=== PATIENT | female | born 1950 | race Caucasian/White ===

== ENCOUNTER 2017-07-15 07:14 | Day surgery (SDC) | payer BC, OTHER ==
[2017-07-15 07:41] VITALS: BMI 35.7
[2017-07-15] MEDS ORDERED: ROPIVACAINE HCL 0.5% 30ML VIAL ONE (08:31)
[2017-07-15] MEDS ORDERED: DEXAMETHASONE SOD PHOSPHATE/PF 10 MG/ML SDV ONE (08:31)
[2017-07-15] MEDS ORDERED: MIDAZOLAM HCL 2 MG/2 ML SINGLE DOSE VIAL ONE ×2 (08:32)
[2017-07-15] MEDS ORDERED: DEXAMETHASONE SOD PHOSPHATE 4 MG/1 ML VIAL ONE ×2 (10:12→11:23)
[2017-07-15] MEDS ORDERED: PROPOFOL 20 ML ONE (10:15)
[2017-07-15] MEDS ORDERED: ROCURONIUM BROMIDE 50 MG/5 ML VIAL ONE (10:15)
[2017-07-15] MEDS ORDERED: LIDOCAINE HCL/PF 2% SDV 5ML VIAL ONE (10:15)
[2017-07-15] MEDS ORDERED: ceFAZolin SODIUM 1 GM VIAL ONE (10:19)
[2017-07-15] MEDS ORDERED: ceFAZolin SODIUM 1 GM VIAL IVPB ONE (10:28)
[2017-07-15] MEDS ORDERED: ePHEDrine SULFATE 50 MG/1 ML AMPULE ONE (10:52)
[2017-07-15] MEDS ORDERED: GLYCOPYRROLATE 0.2 MG/1 ML VIAL ONE (11:23)
[2017-07-15] MEDS ORDERED: NEOSTIGMINE METHYLSULFATE 0.5 MG/ML - 10 ML MDV ONE (11:23)
--- NOTE | 2017-07-15 11:34 | HP ---
[facility] - Chief Complaint Chief Complaint: left shoulder pain - Past Medical History Allergies/Adverse Reactions: Allergies Allergy/AdvReac Type Severity Reaction Status Date / Time levofloxacin [From Levaquin] Allergy Verified 07/25/14 11:36 epinephrine AdvReac Verified 07/25/14 11:36 DOGS Allergy Severe Uncoded 07/25/14 11:36 preser in epi-sodium Allergy Uncoded 07/15/17 08:27 metobisulfite Pulmonary: Yes: Asthma Gastrointestinal: Yes: GERD Renal/: Yes: Renal Calculi Heme/Onc: Yes: Other (h/o DVT on full dose daily ASA) - Current Medications Current Medications: Home Medications Medication Instructions Recorded Albuterol Sulfate Inhaler - 1 puff IH PRN 07/15/17 [Ventolin HFA Inhaler -] Aspirin 81 mg PO DAILY 07/15/17 Bupropion HCl [Bupropion Xl] 300 mg PO DAILY 07/15/17 Fluticasone Propionate [Flovent 50 mcg IH DAILY 07/15/17 Diskus] Mometasone/Formoterol [Dulera 200 2 inh IH PRN 07/15/17 Mcg/5 Mcg Inhaler] Omeprazole 40 mg PO DAILY 07/15/17 Oxycodone HCl/Acetaminophen 1 - 2 tab PO Q6H #30 tab MDD 6 07/15/17 [Percocet 5-325 mg Tablet] [facility] Physical Exam - Physical Examination Vital Signs: Vital Signs Period Temp Pulse Resp BP Sys/Mcgregor Pulse Ox Last 24 Hr 98.4 F-98.4 F 63-63 20-20 108-108/56-56 96 General Appearance: Well Nourished, Well Developed, Alert & Oriented x3 ENT: Clear Lung: Normal air movement Heart: Regular rate & rhythm Extremities: Other (left shoulder- + ttp, decr rom, + empty can, + neer, + sofia, nvi MRI + rct) Neurological: Intact, Alert, Oriented [facility] Impression/Plan - Impression/Plan Impression: left shoulder rct Operative Procedure: left shoulder arthroscopy RCR, SAD Date to be Performed: 07/15/17
--- NOTE | 2017-07-15 11:36 | OP ---
Operative Note - Note: Operative Date: 07/15/17 ([facility]) Pre-Operative Diagnosis: left shoulder rct Operation: left shoulder arthroscopy with RCR, SAD Implants: arthrex speedbridge Post-Operative Diagnosis: Same as Pre-op Surgeon: Demetrio Barkley Landscaping And Groundskeeping Laborer: Issa Malik Anesthesiologist/DAY PORTER: Sabas Rubin Anesthesia: General, Local Specimens Removed: shavings Estimated Blood Loss (mls): 10 Operative Report Dictated: Yes
[2017-07-15] MEDS ORDERED: ONDANSETRON 4 MG/2 ML VIAL IVPUSH PRN (11:42)
[2017-07-15] MEDS ORDERED: oxyCODONE HCL 5 MG TABLET PO PRN (11:42)
[2017-07-15] MEDS ORDERED: LACTATED RINGERS SOLUTION 1,000 ML IV SCH (11:45)
--- NOTE | 2017-07-15 13:20 | SPEC ---
DATE OF OPERATION: 07/15/2017 PREOPERATIVE DIAGNOSIS: Left rotator cuff tear. POSTOPERATIVE DIAGNOSIS: Left rotator cuff tear. PROCEDURE: Left shoulder arthroscopy, subacromial decompression, and SpeedBridge rotator cuff repair. SURGICAL ATTENDING: Demetrio Barkley MD TOBACCO BUYER: FANY Watkins ANESTHESIA: Regional and general. CLOSURE: An Arthrex SpeedBridge for rotator cuff and 3-0 nylon for skin. ESTIMATED BLOOD LOSS: Negligible. COMPLICATIONS: None. CONDITION: To the recovery room in stable condition. DESCRIPTION OF PROCEDURE: The patient was taken to the operating room on July 15, 2017. General and regional anesthesia was administered by the anesthesiologist. IV Kefzol was administered prophylactically prior to the case. The patient was placed in the beach chair position with all prominences well padded. The left shoulder area was prepped and draped in the usual sterile fashion. First, a diagnostic arthroscopy of the glenohumeral joint was made. Posterior portal was made 2 fingerbreadths below the acromion with a 15 blade followed by a blunt trocar. Circumferential exam of the glenohumeral joint revealed the following: Intact labrum circumferentially, intact glenoid and humeral head articular cartilage, intact biceps and biceps anchor, intact subscapularis through its insertion. Looking superiorly, there was a large rotator cuff tear. The fluid was drained from the shoulder, and the trocar was removed. The posterior trocar was redirected in the subacromial space. An accessory lateral and anterior portal were made with a 15 blade followed by a blunt trocar. The lateral portal was used as the working portal. Through this portal, an ArthroCare device was applied. This was used to debride the soft tissue in the subacromial aspect. The coracoacromial ligament was identified and detached off the anterior acromion and was visualized to drop inferiorly and was further debrided. The bone on the undersurface of the acromion was burred to the appropriate level giving appropriate height for the rotator cuff beneath. Looking inferiorly, there was a large rotator cuff tear, soft tissue encasing the rotator cuff, and the deltoid recess was debrided using ArthroCare device and the shaver. The bed on the greater tuberosity was burred to give a good bed for the double row SpeedBridge repair. A grasper was used to ensure that the rotator cuff was able to be reduced sufficiently to the greater tuberosity. The rotator cuff was freed on the bursal and the articular surface to allow more excursion of the tendon. Two anchors preloaded with FiberTape suture were placed on the articular margin, one more anteriorly, one more posteriorly. They were shuttled through the anterior portal with a grasper. Each limb was individually passed through the rotator cuff, two anteriorly and two posteriorly. One anterior limb and one posterior limb was delivered through the lateral portal. They were placed through the eyelet hole of the more lateral anchor, which was then malleted into place much more laterally, reducing the rotator cuff to the greater tuberosity. The swivel was then screwed into place. The sutures were then cut flush with the bone. Next, one anterior and one posterior limb that was remaining were shuttled from the anterior to the lateral portal. The sutures were placed through the eyelet hole of the anterior anchor, which was malleted on the anterior aspect of the greater tuberosity. After tensioning it, it was deployed the entire way and then screwed home giving an excellent reduction to the anterior portion of the rotator cuff. After the sutures were cut, the rotator cuff was probed and found to have good stability with excellent matting down of the rotator cuff to the greater tuberosity. The shoulder was taken through the range of motion and found to have good clearance on the undersurface of the acromion with good, solid repair. The shoulder was drained of the fluid. The portals were closed with 3-0 nylon suture. A sterile pressure dressing followed by a shoulder immobilizer was applied. The patient was awoken from anesthesia and transferred to recovery room in stable condition. No complications. Estimated blood loss negligible. Massiel [id number]
[2017-07-15 15:51] VITALS: BP 118/58; PULSE 85; TEMP 98.8
--- NOTE | 2017-07-16 18:15 | PATH ---
Surgical Pathology Report Patient Name: REGGIE ALMEIDA [facility]. Rec. #: [id number] /Age/Gender: 1950 (Age: 67) / F Account: [id number] Location: [facility] SURGICAL Taken: 07/15/2017 Received: 07/15/2017 Reported: 07/16/2017 Physicians: Demetrio Barkley M.D. Specimen(s) Received LEFT SHOULDER SHAVINGS Clinical History Left RTC tear Final Diagnosis SHOULDER SHAVINGS, LEFT, ARTHROSCOPY: FRAGMENTS OF BENIGN CARTILAGE, DENSE FIBROCONNECTIVE TISSUE, ADIPOSE TISSUE, SYNOVIUM, AND SKELETAL MUSCLE. Electronically Signed Wanda Bueno M.D. Gross Description Received in formalin, labeled "left shoulder shavings," is a 3 x 2 x 0.7 cm. aggregate of escamilla-yellow soft tissue fragments. A customer operations representative portion is submitted in one cassette. IRISH/07/15/2017 devon/07/15/2017
== END 2017-07-15 15:30 | disposition home or self-care (01) ==
LOC: JASU-SURG 07:14
PROVIDERS: ATTEND Orthopaedic Surgery
PROC: 0RNK4ZZ Release Left Shoulder Joint, Percutaneous Endoscopic Approach (ICD-10-PCS; principal; 2017-07-15 09:30)
PROC: 0LQ24ZZ Repair Left Shoulder Tendon, Percutaneous Endoscopic Approach (ICD-10-PCS; 2017-07-15 09:30)
DX: M75.102 Unspecified rotator cuff tear or rupture of left shoulder, not specified as traumatic (principal)
CPT/HCPCS: 88304-TC; 94760

== ENCOUNTER 2018-09-14 10:01 | Inpatient (IN) | payer BC, OTHER ==
--- NOTE | 2018-09-14 08:01 | HP ---
[facility] - Chief Complaint Chief Complaint: right knee pain - Past Medical History Allergies/Adverse Reactions: Allergies Allergy/AdvReac Type Severity Reaction Status Date / Time Penicillins Allergy Severe Swelling Verified 09/06/18 11:06 levofloxacin [From Levaquin] Allergy Intermediate Swelling Verified 08/13/18 13: 40 epinephrine AdvReac Severe SEE BELOW Verified 08/13/18 13:40 DOGS Allergy Severe Difficulty Uncoded 08/13/18 13:40 Breathing preser in epi-sodium Allergy Uncoded 07/15/17 08:27 metobisulfite Pulmonary: Yes: Asthma Gastrointestinal: Yes: GERD Renal/: Yes: Renal Calculi Heme/Onc: Yes: Other (h/o DVT on full dose daily ASA) - Current Medications Current Medications: Home Medications Medication Instructions Recorded Albuterol Sulfate Inhaler - 1 puff IH PRN PRN 07/15/17 [Ventolin HFA Inhaler -] Aspirin 81 mg PO DAILY 07/15/17 Mometasone/Formoterol [Dulera 200 2 inh IH PRN PRN 07/15/17 Mcg/5 Mcg Inhaler] Omeprazole 40 mg PO DAILY PRN 07/15/17 Ferrous Sulfate 325 mg PO DAILY 08/13/18 Lifitegrast [Xiidra] 1 each OU BID 08/13/18 [facility] Physical Exam - Physical Examination General Appearance: Well Nourished, Well Developed, Alert & Oriented x3 ENT: Clear Lung: Normal air movement Heart: Regular rate & rhythm Extremities: Other (right knee- + swelling, + ttp, decr rom, nvi, xrays show grade 4 tricompartmental djd) Neurological: Intact, Alert, Oriented [facility] Impression/Plan - Impression/Plan Impression: right knee djd Operative Procedure: right estela tkr Date to be Performed: 09/14/18
[2018-09-14] MEDS ORDERED: TRANEXAMIC ACID 1000 MG/10 ML VIAL IVPUSH ONE (10:39)
[2018-09-14] MEDS ORDERED: CELECOXIB 200 MG CAPSULE PO ONE (10:39)
[2018-09-14] MEDS ORDERED: GABAPENTIN 300 MG CAPSULE (FP) PO ONE (10:39)
[2018-09-14] MEDS ORDERED: oxyCODONE HCL 10 MG SUSTAINED ACTING TABLET PO ONE (10:39)
[2018-09-14] MEDS ORDERED: CEFAZOLIN 2 GM in DEXTROSE 5%-WATER - 50 ML IVPB ONE (10:39)
[2018-09-14 10:55] VITALS: BMI 38.7
[2018-09-14] MEDS ORDERED: BUPIVACAINE LIPOSOME/PF (EXPAREL) 266 MG/20 ML VIAL ONE (13:03)
[2018-09-14] MEDS ORDERED: SODIUM CHLORIDE 0.9% P/F 10 ML VIAL IJ ONE (13:03)
[2018-09-14] MEDS ORDERED: MIDAZOLAM HCL 2 MG/2 ML SINGLE DOSE VIAL ONE ×2 (13:03→14:05)
[2018-09-14] MEDS ORDERED: ALBUTEROL SO4 8 GM HFA INHALER IH PRN (13:56)
[2018-09-14] MEDS ORDERED: MAG HYDROX/AL HYDROX/SIMETH 30 ML UNIT-DOSE CUP PO PRN (13:56)
[2018-09-14] MEDS ORDERED: PATIENT'S OWN MEDICATION (NON-FORMULARY) (Mometasone/Formoterol [Dulera 200 Mcg/5 Mcg Inha IH PRN (13:56)
[2018-09-14] MEDS ORDERED: ONDANSETRON 4 MG/2 ML VIAL IVPUSH PRN ×2 (13:56→16:03)
[2018-09-14] MEDS ORDERED: MAGNESIUM HYDROX 2400MG/30ML ORAL SUSPENSION 30 ML CUP PO PRN (13:56)
[2018-09-14] MEDS ORDERED: PANTOPRAZOLE 40 MG TABLET (FP) PO PRN (13:56)
[2018-09-14] MEDS ORDERED: LACTATED RINGERS SOLUTION 1,000 ML IV SCH (14:00)
[2018-09-14] MEDS ORDERED: TRANEXAMIC ACID 1000 MG/10 ML VIAL ONE (14:06)
[2018-09-14] MEDS ORDERED: ceFAZolin SODIUM 1 GM VIAL ONE ×2 (14:06)
[2018-09-14] MEDS ORDERED: DEXAMETHASONE SOD PHOSPHATE 4 MG/1 ML VIAL ONE (14:06)
[2018-09-14] MEDS ORDERED: ONDANSETRON 4 MG/2 ML VIAL ONE (14:06)
[2018-09-14] MEDS ORDERED: VANCOMYCIN 1,000 MG VIAL (RESTRICTED TO ID ONLY) ONE (14:07)
--- NOTE | 2018-09-14 15:45 | OP ---
Operative Note - Note: Operative Date: 09/14/18 ([facility]) Pre-Operative Diagnosis: right knee djd Operation: right estela tkr Post-Operative Diagnosis: Same as Pre-op Surgeon: Demetrio Barkley Field Service Poultry Technician: Issa Malik Anesthesiologist/COLLEGE ADMINISTRATOR: Delgado Huerta Anesthesia: Spinal, Local Specimens Removed: bone fragments Estimated Blood Loss (mls): 100 Operative Report Dictated: Yes
[2018-09-14] MEDS ORDERED: oxyCODONE HCL 5 MG TABLET PO PRN (16:03)
[2018-09-14] MEDS ORDERED: PROMETHAZINE HCL 25 MG/1 ML VIAL IVPUSH PRN (16:03)
[2018-09-14] MEDS: ACETAMINOPHEN 325 MG TABLET (FP) PO SCH ×2 (16:20→21:17)
[2018-09-14] MEDS ORDERED: ACETAMINOPHEN 325 MG TABLET (FP) ONE (16:21)
[2018-09-14] MEDS: oxyCODONE HCL 5 MG TABLET PO PRN (18:38)
[2018-09-14] MEDS: CEFAZOLIN 2 GM/D5W 2 GM/50 ML ML IVPB SCH (21:16)
[2018-09-14] MEDS: oxyCODONE HCL 10 MG SUSTAINED ACTING TABLET PO SCH (21:16)
[2018-09-14] MEDS: SENNOSIDES/DOCUSATE COMBO (SENNA PLUS) TABLET (UD) PO SCH (21:17)
--- NOTE | 2018-09-14 21:31 | SPEC ---
DATE OF OPERATION: 09/14/2018 PREOPERATIVE DIAGNOSIS: Degenerative joint disease, right knee. POSTOPERATIVE DIAGNOSIS: Degenerative joint disease, right knee. PROCEDURE: Right total knee replacement with robotic-assisted navigation (Makoplasty). SURGICAL ATTENDING: Demetrio Barkley MD HRIS DEVELOPER: FANY Watkins ANESTHESIA: Regional and spinal. CLOSURE: A cemented Triathlon knee system with a 4 femur, 5 tibia, 11 polyethylene, 35 patella, number 1 Vicryl for fascia, 0 and 2-0 for subcutaneous, 3-0 Monocryl subcuticular with skin glue for skin, 4-0 undyed Vicryl for pin sites. ESTIMATED BLOOD LOSS: Approximately 100 mL. TOURNIQUET TIME: Approximately 24 minutes. COMPLICATIONS: None. CONDITION: To recovery room in stable condition. DESCRIPTION OF OPERATIVE PROCEDURE: Patient was taken to the operating room on September 14, 2018. Regional and general anesthesia was administered by the anesthesiologist. IV Kefzol and TXA were administered by the anesthesiologist. Well-padded pneumatic tourniquet was placed on the proximal thigh. The right lower extremity was prepped and draped in the usual sterile fashion. The leg was exsanguinated with an Esmarch bandage, and tourniquet was inflated to 275 mmHg. A 12- to 15-cm longitudinal midline incision was incised while centered over the patella. The dissection was carried down to the level of the extensor mechanism with sufficient flaps made to adequately perform the procedure. A medial parapatellar arthrotomy was then performed. We made a cuff of tissue on the patella for later closure. The patella was inverted, the knee was flexed up. The fat pad was excised. The subperiosteal dissection was on the anteromedial proximal tibia around towards the direction of the MCL. The ACL and the PCL were transected and debrided. The meniscal remnants of the medial and lateral meniscus were debrided and removed. This allowed the knee to be able to "be brought forward." The checkpoints were malleted into the tibia and into the femur. Two threaded pins were drilled anteroposteriorly proximal to the knee through the previous incision, through the anterior cortex, then just engaging the posterior cortex. To these pins was assembled the femoral navigation array. One handbreadth below the tibial tubercle, 2 stab incisions were used to drill 2 threaded pins in parallel fashion into the tibia, again through the anterior cortex and just engaging the posterior cortex. To these pins was fastened the tibial arrays. The knee was then registered with the navigation device with center of rotation of the hip, medial and lateral malleoli, both checkpoints, and multiple points on both the femur and the tibia to ensure excellent registration. The navigation device was directed off the "top of the bubbles" on both the femur and the tibia. The navigation passed within less than 0.5 mm to plan. The knee was then thoroughly inspected to remove all osteophytes both medially, laterally, and on the femur and the tibia, and whatever osteophytes were available for dissection. The knee was then taken to extension and to flexion and stressed in both varus and valgus to assess flexion gaps. The virtual position of the components on the navigation device were then manipulated to optimize the position and to ensure equal gaps in both flexion and extension, and both medially and laterally. The robot was then brought into the field and was registered. The cuts were then made both on the femur and on the tibia as to plan. All osteophytes posteriorly were then removed as well. The gaps were then measured again in flexion and extension to be equal in both flexion and extension and medial and laterally. The femoral notch was then made, as we were doing a posterior stabilizing component, with the appropriate sized box. Trial reduction of the femur achieved excellent [id number] fit. A tibial baseplate of appropriate polyethylene thickness was "floated in the knee." It was ensured to be in the excellent position by navigation devices and was pinned in place. The knee was taken through a range of motion and found to have excellent stability throughout flexion and extension. The patella was calibrated for thickness and osteotomized down to the appropriate level. The appropriate lollipop was used to drill the lug holes in the patella and the trial button was applied. The knee was taken through a range of motion and found to have excellent tracking of the patella, and patella from full extension to full flexion. Trial components were removed, the keel was punched and drilled, and a sclerotic bone on the tibia was drilled to help with cement interdigitation. The knee was thoroughly irrigated with the pulse antibiotic od grinder operator. The real components were then cemented in using monitored arrangement cement techniques with antibiotic cement, and pressurization and extension. After the cement was hardened, the knee was thoroughly inspected to remove any extra cement. The real polyethylene component was then clipped into place. Range of motion, stability, and tracking were as described earlier. The checkpoints and the pins were removed. The knee was thoroughly irrigated with antibiotic irrigation. Vancomycin powder was placed into the knee for antibiotic prophylaxis. The medial parapatellar arthrotomy was then closed using number 1 Vicryl interrupted suture. After closure of the deep layer, the knee was taken through a range of motion, and found to have excellent stability of the patella with no dislocation and no undue tension on the repair. The subcutaneous was pulse antibiotic irrigated, and was then closed with 2-0 Vicryl, 3-0 Monocryl subcuticular with the skin glue for the skin. The distal tibial pin site was irrigated thoroughly as well and then closed with 4-0 undyed Vicryl. A sterile Aquacel dressing was applied, followed by a Krishnamurthy dressing. Tourniquet was deflated. Total tourniquet time was approximately 75 minutes. No complications. Patient was awakened from anesthesia and transferred to recovery room in stable condition. Postoperative x-rays revealed excellent position of the components. Massiel [id number]
[2018-09-14] MEDS ORDERED: PATIENT'S OWN MEDICATION (NON-FORMULARY) (Lifitegrast [Xiidra] 1 EACH) OU SCH (22:00)
[2018-09-15] MEDS: oxyCODONE HCL 5 MG TABLET PO PRN ×3 (01:01→20:52)
[2018-09-15] MEDS: ACETAMINOPHEN 325 MG TABLET (FP) PO SCH ×4 (05:35→23:22)
[2018-09-15] MEDS: CEFAZOLIN 2 GM/D5W 2 GM/50 ML ML IVPB SCH (05:38)
[2018-09-15 07:40] LABS: HEMATOCRIT 34.8 % (32.4-45.2); HEMOGLOBIN 11.7 GM/dl (10.7-15.3); MCH 32.4 pg (25.7-33.7); MCHC 33.6 g/dl (32.0-36.0); MEAN CELL VOLUME 96.4 fl (80-96); MEAN PLT VOLUME 8.3 fl (7.5-11.1); PLATELET COUNT 265 K/MM3 (134-434); RBC 3.61 M/mm3 (3.60-5.2); RDW 13.9 % (11.6-15.6); WHITE BLOOD COUNT 9.7 K/mm3 (4.0-10.8)
[2018-09-15] MEDS: ASPIRIN 325 MG TABLET PO SCH (07:51)
--- NOTE | 2018-09-15 09:15 | PN ---
Progress Note (short form) - Note Progress Note: Ortho Pt seen and examined s/p right estela tkr pod #1 Selected Entries 09/15/18 08:51 Temperature 98.3 F Pulse Rate 69 Respiratory 19 Rate Blood Pressure 94/57 L Laboratory Tests 09/15/18 07:14 WBC 9.7 Hgb 11.7 Hct 34.8 Plt Count 265 dressing c/d/i, calf soft, nt rom 0-40, nvi a/p PT dvt ppx pain control d/c home tomorrow if stable
[2018-09-15] MEDS: SENNOSIDES/DOCUSATE COMBO (SENNA PLUS) TABLET (UD) PO SCH ×2 (09:51→22:06)
[2018-09-15] MEDS: FERROUS SO4 325 MG TABLET (FP) PO SCH (09:51)
[2018-09-15] MEDS: MULTIVITAMINS (DAILY MVI) TABLET (FP) PO SCH (09:52)
[2018-09-15] MEDS: oxyCODONE HCL 10 MG SUSTAINED ACTING TABLET PO SCH ×2 (09:53→22:05)
--- NOTE | 2018-09-15 14:25 | PN ---
Progress Note (short form) - Note Progress Note: S- POD #1 s/p Right TKR, doing well without complaints. O- Vital Signs Temperature 98.3 F 09/15/18 08:51 Pulse Rate 69 09/15/18 10:01 Respiratory Rate 19 09/15/18 10:01 Blood Pressure 112/60 09/15/18 10:01 O2 Sat by Pulse Oximetry (%) 100 09/15/18 08:51 VAS-2-8 no anesthesia complications A/P- 68 yo female s/p Right TKR under spinal anesthesia and PNB recovering well. Continue current care.
[2018-09-16] MEDS: ACETAMINOPHEN 325 MG TABLET (FP) PO SCH ×5 (04:56→21:44)
[2018-09-16] MEDS: oxyCODONE HCL 5 MG TABLET PO PRN (06:00)
[2018-09-16 07:39] LABS: HEMATOCRIT 32.2 % (32.4-45.2); HEMOGLOBIN 10.7 GM/dl (10.7-15.3); MCH 31.9 pg (25.7-33.7); MCHC 33.3 g/dl (32.0-36.0); MEAN CELL VOLUME 95.7 fl (80-96); MEAN PLT VOLUME 8.5 fl (7.5-11.1); PLATELET COUNT 222 K/MM3 (134-434); RBC 3.36 M/mm3 (3.60-5.2); RDW 14.4 % (11.6-15.6); WHITE BLOOD COUNT 9.8 K/mm3 (4.0-10.8)
[2018-09-16] MEDS: ASPIRIN 325 MG TABLET PO SCH (08:26)
--- NOTE | 2018-09-16 08:30 | PN ---
Progress Note (short form) - Note Progress Note: Ortho Pt seen and examined s/p right estela tkr pod #2- c/o difficulty swallowing. Pt states that she has been having reflux for the past 1.5 weeks but now feels as if food/meds are getting stuck in her throat. denies any CP, SOB, difficulty breathing, N/V. Selected Entries 09/16/18 05:00 Temperature 98.3 F Pulse Rate 79 Respiratory 18 Rate Blood Pressure 102/48 L Laboratory Tests 09/16/18 07:15 WBC 9.8 Hgb 10.7 Hct 32.2 L Plt Count 222 dressing c/d/i, calf soft, nt rom 0-50, nvi a/p medical f/u to address dysphagia PT dvt ppx pain control d/c home today if medically cleared
--- NOTE | 2018-09-16 08:33 | DS ---
Physical Examination Vital Signs: Vital Signs Temperature 98.3 F 09/16/18 05:00 Pulse Rate 79 09/16/18 05:00 Respiratory Rate 18 09/16/18 05:00 Blood Pressure 102/48 L 09/16/18 05:00 O2 Sat by Pulse Oximetry (%) 96 09/16/18 06:47 Labs: CBC, BMP 09/16/18 07:15 Discharge Summary Reason For Visit: RT TOTAL KNEE REPLACEMENT Procedures: Principal: right tkr Hospital Course: admitted for elective right estela tkr, uneventful post-op form ortho pov, had dysphagia that was evaluated by medical doctor and GI, Had endoscopy performed which showed hiatal hernia, GI has cleared pt for d/c, will follow-up with GI as outpt, stable for d/c Condition: Good - Instructions Diet, Activity, Other Instructions: Post-op Instructions-Total Knee Replacement Call the office for a follow-up appointment in 1 week - [phone] Aspirin 325mg daily for 6 weeks. Pain medication was sent into your pharmacy. Apply Graduated Compression Stockings (TEDs) to both lower extremities- remove daily for hygiene ONLY Apply Sequential Compression Device (SCDs) to both Lower extremities remove for PT and hygiene ONLY Apply cold packs to affected area for 15 minutes every 2 hours. Physical Therapist will come to your home for the first 5 days. You will be set up with outpatient PT at your first post-operative visit. Patient may ambulate as tolerated-encourage self care (at least every 2-3 hours while awake) with walker or cane Maintain Aquacel (waterproof) dressing to operative wound (will be removed by surgeon at first office visit) Shower with Aquacel dressing in place-if Aquacel integrity compromised, remove and apply dry sterile dressing and notify Orthopedist. DO NOT SHOWER unless Orthopedists approves without Aquacel dressing CONTACT THE OFFICE FOR ANY CHANGE IN YOUR CONDITION (for example-fever greater than 102 degrees, excessive bleeding from operative site, purulent drainage, severe swelling or pain) GO TO THE EMERGENCY ROOM IF THERE IS A MEDICAL EMERGENCY Knee Precautions: * Keep a rolled towel under affected heel while in bed or chair (to keep knee in extension) * Keep affected leg elevated except during mealtimes * DO NOT PLACE PILLOW UNDER AFFECTED KNEE * If you have any questions, please do not hesitate to call the office - . Referrals: Demetrio Barkley MD [Staff Physician] - Disposition: VNS/HOME HEALTH CARE - Home Medications Comprehensive Discharge Medication List: Ambulatory Orders Albuterol Sulfate Inhaler - [Ventolin HFA Inhaler -] 1 puff IH PRN PRN 07/15/17 Mometasone/Formoterol [Dulera 200 Mcg/5 Mcg Inhaler] 2 inh IH PRN PRN 07/15/17 Omeprazole 40 mg PO DAILY PRN 07/15/17 Ferrous Sulfate 325 mg PO DAILY 08/13/18 Lifitegrast [Xiidra] 1 each OU BID 08/13/18 Aspirin [ASA -] 325 mg PO DAILY@0800 tablet 09/16/18 Oxycodone HCl/Acetaminophen [Percocet 5-325 mg Tablet -] 1 - 2 tab PO Q6H #50 tab MDD 8 09/16/18
[2018-09-16] MEDS: oxyCODONE HCL 10 MG SUSTAINED ACTING TABLET PO SCH ×3 (10:00→21:43)
--- NOTE | 2018-09-16 11:44 | PN ---
Progress Note, Physician Chief Complaint: AWAKE ALERT POST OP RIGHT TKA C/O DYSPHAGIA WITH SOLIDS AND LIQUIDS - Current Medication List Current Medications: Active Medications Acetaminophen (Tylenol -) 650 mg PO Q6H [facility] Stop: 09/17/18 16:14 Last Admin: 09/16/18 04:56 Dose: 650 mg Al Hydroxide/Mg Hydroxide (Mylanta Oral Suspension -) 30 ml PO Q4H PRN PRN Reason: DYSPEPSIA Albuterol Sulfate (Ventolin Hfa Inhaler -) 2 puff IH Q4H PRN PRN Reason: WHEEZING Aspirin (Asa -) 325 mg PO DAILY@0800 [facility] Last Admin: 09/15/18 07:51 Dose: 325 mg Ferrous Sulfate (Feosol -) 325 mg PO DAILY [facility] Last Admin: 09/15/18 09:51 Dose: 325 mg Magnesium Hydroxide (Milk Of Magnesia -) 30 ml PO PRN PRN PRN Reason: CONSTIPATION Multivitamins/Minerals/Vitamin C (Tab-A-Vit -) 1 tab PO DAILY [facility] Last Admin: 09/15/18 09:52 Dose: 1 tab Non-Formulary Medication (Lifitegrast [Xiidra]) 1 each OU BID [facility] Non-Formulary Medication (Mometasone/Formoterol [Dulera 200 Mcg/5 Mcg Inhaler]) 2 inh IH PRN PRN PRN Reason: WHEEZING Ondansetron HCl (Zofran Injection) 4 mg IVPUSH Q6H PRN PRN Reason: NAUSEA AND/OR VOMITING Oxycodone HCl (Roxicodone -) 5 mg PO Q3H PRN PRN Reason: PAIN LEVEL 1-5 Oxycodone HCl (Roxicodone -) 10 mg PO Q3H PRN PRN Reason: PAIN LEVEL 6-10 Last Admin: 09/16/18 06:00 Dose: 10 mg Oxycodone HCl (Oxycontin -) 10 mg PO BID [facility] Stop: 09/17/18 16:04 Last Admin: 09/15/18 22:05 Dose: 10 mg Pantoprazole Sodium (Protonix -) 40 mg PO DAILY PRN PRN Reason: INDIGESTION Senna/Docusate Sodium (Pericolace -) 2 tablet PO BID [facility] Last Admin: 09/15/18 22:06 Dose: 2 tablet - Objective Vital Signs: Vital Signs Temperature 98.3 F 09/16/18 05:00 Pulse Rate 79 09/16/18 05:00 Respiratory Rate 18 09/16/18 05:00 Blood Pressure 102/48 L 09/16/18 05:00 O2 Sat by Pulse Oximetry (%) 96 09/16/18 06:47 Constitutional: Yes: Mild Distress Cardiovascular: Yes: Regular Rate and Rhythm Respiratory: Yes: WNL Gastrointestinal: Yes: WNL Genitourinary: Yes: WNL Musculoskeletal: Yes: Other Extremities: Yes: Other Integumentary: Yes: Other Wound/Incision: Yes: Dressing Dry and Intact Neurological: Yes: WNL ...Motor Strength: WNL Psychiatric: Yes: WNL Labs: CBC, BMP 09/16/18 07:15 Problem List - Problems (1) Dysphagia Code(s): R13.10 - DYSPHAGIA, UNSPECIFIED (2) Total knee replacement status Code(s): Z96.659 - PRESENCE OF UNSPECIFIED ARTIFICIAL KNEE JOINT (3) Osteoarthritis of knee Code(s): M17.9 - OSTEOARTHRITIS OF KNEE, UNSPECIFIED Assessment/Plan MONITOR OVERNIGHT GI EVAL DYSPHAGIA DYSPHAGIA DIET SWALLOW EVAL PAIN CONTROL DVT PROPHYLAXIS
--- NOTE | 2018-09-16 12:11 | CONSULT ---
Admitting History and Physical - Primary Care Physician PCP: Hunter Jansen - Admission History of Present Illness: Per EMR- s/p right estela tkr pod #2- c/o difficulty swallowing. Pt states that she has been having reflux for the past 1.5 weeks but now feels as if food/meds are getting stuck in her throat. denies any CP, SOB, difficulty breathing, N/V. Pt reports some swallowing difficulty before admission, feeling food sticking in throat. She loses her voice intermittently. She thought it was due to reflux. s/p Knee surgery, she felt an increase in symptoms, afraid to eat. Selected Entries 09/15/18 09/15/18 09/15/18 01:34 08:51 09:09 Breakfast 75% Lunch Supper Temperature 98.8 F 98.3 F Pulse Rate 09/15/18 09/15/18 09/15/18 13:25 14:29 17:00 Breakfast Lunch 75% Supper 75% Temperature 98.0 F Pulse Rate 09/15/18 09/15/18 09/16/18 18:00 21:23 05:00 Breakfast Lunch Supper Temperature 98.7 F 98.0 F Pulse Rate 79 09/16/18 10:57 Breakfast 75% Lunch Supper Temperature Pulse Rate Laboratory Tests 09/16/18 07:15 WBC 9.8 Downgraded to Dysphagia whole/thin liquids. Pt reports only eating yogurt, afraid to eat solids. History Source: Patient, Medical Record Limitations to Obtaining History: No Limitations - Past Medical History Pulmonary: Yes: Asthma Gastrointestinal: Yes: GERD Renal/: Yes: Renal Calculi ...: No Heme/Onc: Yes: Other (h/o DVT on full dose daily ASA) - Past Surgical History Past Surgical History: Yes: Joint Replacement (total left knee replacement one month ago) - Advance Directives Advance Directives: Yes: Health Care Proxy - Smoking History Smoking history: Never smoked Have you smoked in the past 12 months: No Aproximately how many cigarettes per day: 0 - Alcohol/Substance Use Hx Alcohol Use: No History - Admission Reason For Visit: RT TOTAL KNEE REPLACEMENT - Diagnostics Other: Report Reviewed (Esophagram-Moderate sized sliding esophageal HH. Incomplete obstruction of the distaL ESOPHAGUS POSSIBLY DUE TO FOREIGN BODY OR STRICTURE. Esophagoscopy is suggested.) - General Mental Status: Alert and Oriented Attention: Intact Ability to Follow Directions: Excellent Head/Neck Control: WFL - Hearing Hearing: Normal Speech Evaluation - Communication Primary Language: KAZAKH Communication: Yes: Within Normal Limits Oral Expression Ability: Yes: No Impairment - Speech Production Able to Make Needs Known: Yes: WNL Intelligibility: Yes: WNL - Speech Characteristics Voice Loudness: Normal, Mildly Soft/Quiet Voice Pitch: Yes: Normal Voice Phonatory-based Quality: Yes: Normal, Dysphonia (Pt reports intermittent loss of voice) Speech Pattern: Impaired Speech Clarity: < 100% Nasal Resonance: Normal Articulation: Yes: Precise - Language/Auditory Comprehension Follows: Yes: 2 Stage Simple Commands - Language/Verbal Expression Able to Respond to Simple Queries: Yes: WNL Able to Communicate Wants and Needs: Yes: WNL Functional Communication Status: Yes: WNL - Swallow Evaluation/Bedside Assessment Current Nutritional Intake: Dysphagia Whole, Thin Liquids Oral Secretions: Yes: WFL Dentition: Yes: Adequate Facial Movement: Controlled Jaw Position: Open at Rest Against Resistance Opening: Normal Against Resistance Closing: Normal Pucker Lips: Normal Smile: Normal Lingual Movement: Normal, Symmetric Lingual Speed of Movement: Normal Lingual Movement Strgth Against Opposition: Normal Lingual Movement Characteristics: Normal Velopharyngeal Movement: Normal Laryngeal Elevation: WFL Laryngeal Movement: Able to Palpate Rate of Intake: WFL Bolus Size: WFL Labial Seal: WFL Oral Prep Time: WFL A-P Transit: WFL Pocketing: None Timing of Swallow: WFL Coughing/Throat Clear: No Change in Voice: No Recommendations - Speech Evaluation, Impression/Plan Impression: Selvin-pharyngeal swallow overtly WNL. Esophagram-Moderate sized sliding esophageal HH. Incomplete obstruction of the distaL ESOPHAGUS POSSIBLY DUE TO FOREIGN BODY OR STRICTURE. Esophagoscopy is suggested. Case reviewed with Dr. Jansen and Dr. Madrigal. - Dysphagia Impressions/Plan Dysphagia Impressions: Risk of Aspiration Dysphagia Treatment Plan: Other (HOB elevated. Strict NPO.) Recommendations: GI Consult - Recommendations Diet Consistency: NPO, Other (No po medication-IV) Liquids: NPO
[2018-09-16] MEDS: MULTIVITAMINS (DAILY MVI) TABLET (FP) PO SCH (16:28)
[2018-09-16] MEDS: SENNOSIDES/DOCUSATE COMBO (SENNA PLUS) TABLET (UD) PO SCH ×2 (16:28→21:27)
[2018-09-16] MEDS: FERROUS SO4 325 MG TABLET (FP) PO SCH (18:26)
[2018-09-17] MEDS ORDERED: ACETAMINOPHEN 1000 MG/100 ML VIAL (NON FORMULARY) IVPB ONE (04:45)
[2018-09-17] MEDS: LORazepam 2 MG/ML SDV VIAL IVPUSH ONE ×2 (04:46→04:52)
--- NOTE | 2018-09-17 07:13 | CON.GI ---
Consult Consult Specialty:: GI Referred by:: Dr. Hunter Jansen Reason for Consultation:: Dysphagia - History of Present Illness Chief Complaint: Difficulty Swallowing History of Present Illness: Patient is a 68 y/o female who is POD #3 R TKR. Patient states after surgery she was experiencing difficulty swallowing solids, liquids, and pills. She states it feels as if it would be "stuck" in her throat. Prior to her surgery she says having reflux with intermittent episodes of difficulty swallowing for 3 weeks. Patient says her last EGD was about 5 [address] Presley in [place]. Esophogram done and shows moderate size sliding esophageal hiatal hernia, incomplete obstruction of of the distal esophagus possibly due to a foreign body and or stricture. Denies heartburn, nausea, vomiting, abdominal pain, diarrhea, blood in stool, abnormal weight loss. - History Source History Provided By: Patient Limitations to Obtaining History: No Limitations - Past Medical History Pulmonary: Yes: Asthma Gastrointestinal: Yes: GERD Renal/: Yes: Renal Calculi ...: No - Past Surgical History Past Surgical History: Yes: AAA Repair, Bariatric Surgery (gastric sleeve 4 yrs ago, gastric banding 5-6 yrs ago), Cholecystectomy, , Joint Replacement (total left knee replacement one month ago) - Alcohol/Substance Use Hx Alcohol Use: No - Smoking History Smoking history: Never smoked Have you smoked in the past 12 months: No Aproximately how many cigarettes per day: 0 - Social History ADL: Independent History of Recent Travel: No Home Medications - Allergies Allergies/Adverse Reactions: Allergies Allergy/AdvReac Type Severity Reaction Status Date / Time Penicillins Allergy Severe Swelling Verified 09/14/18 10:41 levofloxacin [From Levaquin] Allergy Intermediate Swelling Verified 09/14/18 10: 41 epinephrine AdvReac Severe SEE BELOW Verified 09/14/18 10:41 DOGS Allergy Severe Difficulty Uncoded 09/14/18 10:41 Breathing preser in epi-sodium Allergy Uncoded 09/14/18 10:41 metobisulfite - Home Medications Home Medications: Ambulatory Orders Albuterol Sulfate Inhaler - [Ventolin HFA Inhaler -] 1 puff IH PRN PRN 07/15/17 Mometasone/Formoterol [Dulera 200 Mcg/5 Mcg Inhaler] 2 inh IH PRN PRN 07/15/17 Omeprazole 40 mg PO DAILY PRN 07/15/17 Ferrous Sulfate 325 mg PO DAILY 08/13/18 Lifitegrast [Xiidra] 1 each OU BID 08/13/18 Aspirin [ASA -] 325 mg PO DAILY@0800 tablet 09/16/18 Oxycodone HCl/Acetaminophen [Percocet 5-325 mg Tablet -] 1 - 2 tab PO Q6H #50 tab MDD 8 09/16/18 Review of Systems - Review of Systems Constitutional: reports: No Symptoms Eyes: reports: No Symptoms HENT: reports: Difficult Swallowing Neck: reports: No Symptoms Cardiovascular: reports: No Symptoms Respiratory: reports: No Symptoms Gastrointestinal: reports: Dysphagia, Other (Reflux) Genitourinary: reports: No Symptoms Breasts: reports: No Symptoms Reported Musculoskeletal: reports: No Symptoms Integumentary: reports: No Symptoms Neurological: reports: No Symptoms Endocrine: reports: No Symptoms Hematology/Lymphatic: reports: No Symptoms Psychiatric: reports: No Symptoms Physical Exam-GI Vital Signs: Vital Signs Temperature 98.1 F 09/17/18 06:18 Pulse Rate 82 09/17/18 06:18 Respiratory Rate 18 09/17/18 06:18 Blood Pressure 112/59 L 09/17/18 06:18 O2 Sat by Pulse Oximetry (%) 93 L 09/16/18 21:00 Constitutional: Yes: Well Nourished, No Distress, Calm Eyes: Yes: Conjunctiva Clear HENT: Yes: Atraumatic Cardiovascular: Yes: Regular Rate and Rhythm Respiratory: Yes: Regular, CTA Bilaterally Gastrointestinal Inspection: Yes: WNL. No: Ascites, Distention, Hernia, Scars, Other ...Auscultate: Yes: Normoactive Bowel Sounds. No: Hyperactive Bowel Sounds, Hypoactive Bowel Sounds, No Bowel Sounds, Other ...Palpate: Yes: Soft. No: Firm/Rigid, Guarding, Hepatomegaly, Mass, Pulsatile Mass, Splenomegaly, Tenderness, Tenderness, Epigastium, Tenderness, Rebound, Other ...Percussion: Yes: Tympanitic. No: Dullness, Fluid Wave, Other Neurological: Yes: Alert, Oriented Psychiatric: Yes: Alert, Oriented Labs: CBC, BMP 09/16/18 07:15 Active Medications Generic Name Dose Route Start Last Admin Trade Name Freq PRN Reason Stop Dose Admin Acetaminophen 650 mg 09/14/18 16:15 09/16/18 21:44 Tylenol - PO 09/17/18 16:14 Not Given Q6H ANSLEY Al Hydroxide/Mg Hydroxide 30 ml 09/14/18 13:56 Mylanta Oral Suspension - PO Q4H PRN DYSPEPSIA Albuterol Sulfate 2 puff 09/14/18 13:56 Ventolin Hfa Inhaler - IH Q4H PRN WHEEZING Aspirin 325 mg 09/15/18 08:00 09/16/18 08:26 Asa - PO 325 mg DAILY@0800 [facility] Administration Ferrous Sulfate 325 mg 09/15/18 10:00 09/16/18 18:26 Feosol - PO Not Given DAILY [facility] Magnesium Hydroxide 30 ml 09/14/18 13:56 Milk Of Magnesia - PO PRN PRN CONSTIPATION Multivitamins/Minerals/Vitamin C 1 tab 09/15/18 10:00 09/16/18 16:28 Tab-A-Vit - PO Not Given DAILY [facility] Non-Formulary Medication 1 each 09/14/18 22:00 Lifitegrast [Xiidra] OU BID [facility] Non-Formulary Medication 2 inh 09/14/18 13:56 Mometasone/Formoterol [Dulera 200 Mcg/5 Mcg Inhaler] IH PRN PRN WHEEZING Ondansetron HCl 4 mg 09/14/18 16:03 Zofran Injection IVPUSH Q6H PRN NAUSEA AND/OR VOMITING Oxycodone HCl 5 mg 09/14/18 16:03 Roxicodone - PO Q3H PRN PAIN LEVEL 1-5 Oxycodone HCl 10 mg 09/14/18 16:03 09/16/18 06:00 Roxicodone - PO 10 mg Q3H PRN Administration PAIN LEVEL 6-10 Oxycodone HCl 10 mg 09/14/18 22:00 09/16/18 21:43 Oxycontin - PO 09/17/18 16:04 Not Given BID [facility] Pantoprazole Sodium 40 mg 09/14/18 13:56 Protonix - PO DAILY PRN INDIGESTION Senna/Docusate Sodium 2 tablet 09/14/18 22:00 09/16/18 21:27 Pericolace - PO 2 tablet BID ANSLEY Administration Imaging - Results Other: Report Reviewed (Esophogram) Problem List - Problems (1) Dysphagia Assessment/Plan: >continue IV hydration >NPO >EARLY CHILDHOOD recommendations appreciated >Pantoprazole >will need Endoscopy Code(s): R13.10 - DYSPHAGIA, UNSPECIFIED
[2018-09-17] MEDS: ACETAMINOPHEN 325 MG TABLET (FP) PO SCH (10:31)
[2018-09-17] MEDS: SENNOSIDES/DOCUSATE COMBO (SENNA PLUS) TABLET (UD) PO SCH (10:32)
[2018-09-17] MEDS: ASPIRIN 325 MG TABLET PO SCH (10:32)
[2018-09-17] MEDS: FERROUS SO4 325 MG TABLET (FP) PO SCH (10:32)
[2018-09-17] MEDS: oxyCODONE HCL 10 MG SUSTAINED ACTING TABLET PO SCH (10:32)
[2018-09-17] MEDS: MULTIVITAMINS (DAILY MVI) TABLET (FP) PO SCH (10:33)
--- NOTE | 2018-09-17 11:31 | PN ---
Progress Note (short form) - Note Progress Note: GI Procedure NOte ( covering the [facility] GI service) : Please see EGD report. 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 This was the point of obstruction on the esophagram. No stricture was seen. I discussed the findings with Mary and advised weight loss through a Weight Watcher's diet and aerobic exercise. NO GI objections to discharge
--- NOTE | 2018-09-17 11:50 | PATH ---
Surgical Pathology Report Patient Name: REGGIE ALMEIDA Med. Rec. #: [id number] /Age/Gender: 1950 (Age: 68) / F Account: [id number] Location: [facility] MED/SURG Taken: 09/14/2018 Received: 09/14/2018 Reported: 09/17/2018 Physicians: Demetrio Barkley M.D. Specimen(s) Received BONE AND TISSUE RIGHT KNEE Clinical History Right knee osteoarthritis Final Diagnosis BONE AND TISSUE, RIGHT KNEE, TOTAL KNEE REPLACEMENT: DEGENERATIVE JOINT DISEASE. Electronically Signed Crys Suarez M.D. Gross Description Received in formalin labeled "right knee bone and tissue," is a 13.0 x 10.5 x 3.0 cm aggregate of multiple portions of bone and soft tissue. The tibial plateau measures 7.5 x 5.7 x 1.7 cm. There are no areas of eburnation identified. The articular surfaces are escamilla brown and diffusely granular. The underlying trabecular bone is yellow and hard. [employer] Specialist sections are submitted in one cassette, following decalcification. /09/15/2018 [facility]09/15/2018
--- NOTE | 2018-09-17 12:23 | PN ---
Progress Note, Physician Chief Complaint: patient seen and examined s/p EGD large hiatal hernia GE reflux in distal esophagus biopses take gastric volvulus in the gastric body - Current Medication List Current Medications: Active Medications Acetaminophen (Tylenol -) 650 mg PO Q6H [facility] Stop: 09/17/18 16:14 Last Admin: 09/17/18 10:31 Dose: Not Given Al Hydroxide/Mg Hydroxide (Mylanta Oral Suspension -) 30 ml PO Q4H PRN PRN Reason: DYSPEPSIA Albuterol Sulfate (Ventolin Hfa Inhaler -) 2 puff IH Q4H PRN PRN Reason: WHEEZING Aspirin (Asa -) 325 mg PO DAILY@0800 [facility] Last Admin: 09/17/18 10:32 Dose: Not Given Ferrous Sulfate (Feosol -) 325 mg PO DAILY [facility] Last Admin: 09/17/18 10:32 Dose: Not Given Magnesium Hydroxide (Milk Of Magnesia -) 30 ml PO PRN PRN PRN Reason: CONSTIPATION Multivitamins/Minerals/Vitamin C (Tab-A-Vit -) 1 tab PO DAILY [facility] Last Admin: 09/17/18 10:33 Dose: Not Given Non-Formulary Medication (Lifitegrast [Xiidra]) 1 each OU BID [facility] Non-Formulary Medication (Mometasone/Formoterol [Dulera 200 Mcg/5 Mcg Inhaler]) 2 inh IH PRN PRN PRN Reason: WHEEZING Ondansetron HCl (Zofran Injection) 4 mg IVPUSH Q6H PRN PRN Reason: NAUSEA AND/OR VOMITING Oxycodone HCl (Roxicodone -) 5 mg PO Q3H PRN PRN Reason: PAIN LEVEL 1-5 Oxycodone HCl (Roxicodone -) 10 mg PO Q3H PRN PRN Reason: PAIN LEVEL 6-10 Last Admin: 09/16/18 06:00 Dose: 10 mg Oxycodone HCl (Oxycontin -) 10 mg PO BID [facility] Stop: 09/17/18 16:04 Last Admin: 09/17/18 10:32 Dose: Not Given Pantoprazole Sodium (Protonix -) 40 mg PO DAILY PRN PRN Reason: INDIGESTION Senna/Docusate Sodium (Pericolace -) 2 tablet PO BID [facility] Last Admin: 09/17/18 10:32 Dose: Not Given - Objective Vital Signs: Vital Signs Temperature 98.2 F 09/17/18 11:38 Pulse Rate 76 09/17/18 11:38 Respiratory Rate 20 09/17/18 11:38 Blood Pressure 121/68 09/17/18 11:38 O2 Sat by Pulse Oximetry (%) 100 09/17/18 11:38 Constitutional: Yes: Calm Cardiovascular: Yes: Regular Rate and Rhythm, S1, S2 Respiratory: Yes: CTA Bilaterally Gastrointestinal: Yes: Normal Bowel Sounds, Soft Extremities: Yes: Other (right knee dressing noted) Edema: Yes Labs: CBC, BMP 09/16/18 07:15 Problem List - Problems (1) Dysphagia Assessment/Plan: s/p EGD gastric volvulus, large hiatal hernia protonix weight loss and exercise Code(s): R13.10 - DYSPHAGIA, UNSPECIFIED (2) Total knee replacement status Assessment/Plan: darron at bedside PT possible snf vs home PT Code(s): Z96.659 - PRESENCE OF UNSPECIFIED ARTIFICIAL KNEE JOINT
[2018-09-17 13:53] VITALS: BP 117/45; PULSE 90; TEMP 98.9
--- NOTE | 2018-09-17 15:33 | PN ---
Progress Note (short form) - Note Progress Note: Ortho Pt seen and examined s/p right estela tkr pod #2- c/o difficulty swallowing. Pt had endoscopy performed fro dysphagia and was + hiatal hernia. GI recommends weight loss and observation and has cleared pt for d/c. Selected Entries 09/17/18 13:50 Temperature 98.9 F Pulse Rate 90 Respiratory 20 Rate Blood Pressure 117/45 L Laboratory Tests 09/16/18 07:15 WBC 9.8 Hgb 10.7 Hct 32.2 L Plt Count 222 dressing c/d/i, calf soft, nt rom 0-70, nvi a/p PT dvt ppx pain control d/c home today f/u as outpt in 1 week will also f/u ith GI as outpt
--- NOTE | 2018-09-20 14:22 | PATH ---
Surgical Pathology Report Patient Name: REGGIE ALMEIDA [facility]. Rec. #: [id number] /Age/Gender: 1950 (Age: 68) / F Account: [id number] Location: [facility] MED/SURG Taken: 09/17/2018 Received: 09/17/2018 Reported: 09/20/2018 Physicians: Demetrio Barkley M.D. Specimen(s) Received A: DUODENUM B: BX ANTRUM C: DISTAL ESOPHAGUS +MID Clinical History Food Impaction, esophageal obstruction Postoperative diagnosis: Hiatal hernia Final Diagnosis A. SECOND PORTION DUODENUM AND BULB, BIOPSY: DUODENUM MUCOSA WITH NO SIGNIFICANT PATHOLOGIC CHANGE. NO HISTOLOGIC EVIDENCE OF CELIAC DISEASE. B. ANTRUM, BIOPSY: GASTRIC MUCOSA WITH CHRONIC GASTRITIS. IMMUNOSTAIN FOR H. PYLORI IS NEGATIVE. NEGATIVE FOR INTESTINAL METAPLASIA. C. DISTAL AND MID ESOPHAGUS, BIOPSY: ESOPHAGEAL MUCOSA WITH MILD REFLUX ESOPHAGITIS. NEGATIVE FOR INTESTINAL METAPLASIA. Electronically Signed Juan R Coyle M.D. Gross Description A. Received in formalin, labeled "second portion of duodenum and duodenal bulb" are 5 escamilla, irregular portions of soft tissue measuring 0.1-0.2 cm. in greatest dimension. The specimens are submitted in toto in one cassette. B. Received in formalin, labeled "antrum" are 2 escamilla, irregular portions of soft tissue measuring 0.1 and 0.6 cm. in greatest dimension. The specimens are submitted in toto in one cassette. C. Received in formalin, labeled "distal and mid esophagus" are 2 escamilla, irregular portions of soft tissue measuring 0.3 cm. in greatest dimension. The specimens are submitted in toto in [one] cassette. [facility]/09/17/2018 [facility]/09/17/2018
== END 2018-09-17 16:22 | disposition home health service (06) | DRG 470 ==
LOC: FM/S 10:01 → J7W 09-16 19:19
PROVIDERS: ADMIT Orthopaedic Surgery; ATTEND Orthopaedic Surgery
PROC: 8E0Y0CZ Robotic Assisted Procedure of Lower Extremity, Open Approach (ICD-10-PCS; 2018-09-14)
PROC: 0SRC0J9 Replacement of Right Knee Joint with Synthetic Substitute, Cemented, Open Approach (ICD-10-PCS; principal; 2018-09-14 12:30)
PROC: 0DB98ZX Excision of Duodenum, Via Natural or Artificial Opening Endoscopic, Diagnostic (ICD-10-PCS; 2018-09-17)
PROC: 0DB68ZX Excision of Stomach, Via Natural or Artificial Opening Endoscopic, Diagnostic (ICD-10-PCS; 2018-09-17)
PROC: 0DB58ZX Excision of Esophagus, Via Natural or Artificial Opening Endoscopic, Diagnostic (ICD-10-PCS; 2018-09-17)
DX: M17.11 Unilateral primary osteoarthritis, right knee (principal); R13.10 Dysphagia, unspecified; K44.9 Diaphragmatic hernia without obstruction or gangrene; K21.9 Gastro-esophageal reflux disease without esophagitis
CPT/HCPCS: 36415; 73560-TC-RT-FY; 74220-TC-FY; 85027; 86803; 88304-TC; 88305-TC; 88311-TC; 94760; 97116-GP; 97163-GP; J0131